=== PATIENT | female | born 1995 | race Caucasian/White ===

== ENCOUNTER 2019-09-05 08:44 | Emergency (ER) | payer OTHER ==
[~2019-09-05] VITALS: Ht 165.1 cm; Wt 59.6 kg
[2019-09-05 08:50] VITALS: BP 128/87
--- NOTE | 2019-09-05 09:10 | NUR ---
ASSUMED CARE OF PT IN E AT THIS TIME FROM TRIAGE. AMBULATORY TO ROOM WITH STEADY GAIT. 23 Y/O F PRESENTS STATING "I HAVE A COUGH THAT STARTED BETHANY AND IT FEELS LIKE IT HAS MOVED LOWER INTO MY CHEST. MY THROAT FEELS SCRATCHY." DENIES FEVERS, CHILLS, CP, SOB, N/V/D. SUSAN GRAY AT BEDSIDE FOR EVALUATION. PT PLACED ON ISOLATION PRECAUTIONS PER SUSAN GRAY FOR COUGH. CALL LIGHT IN REACH. FALL PRECAUTIONS IN PLACE. SIDE RAILS UPX2.
[2019-09-05 10:30] LABS: RAPID INFLUENZA A Negative (Negative); RAPID INFLUENZA B Negative (Negative)
== END 2019-09-05 11:22 | disposition home or self-care (01) ==
LOC: ED 11:16
DX: B34.9 Viral infection, unspecified (principal); Z20.828 Contact with and (suspected) exposure to other viral communicable diseases
CPT/HCPCS: 71045; 87081; 87400; 87486; 87581; 87633; 87798; 87880; 99284